=== PATIENT | female | born 1955 | race Caucasian/White ===

== ENCOUNTER 2022-01-19 13:58 | Emergency (ER) | payer MEDICARE ==
[~2022-01-19] VITALS: Ht 154.9 cm; Wt 56.7 kg
[2022-01-19 14:00] VITALS: BP 185/79
[2022-01-19] MEDS ORDERED: NACL 0.9% 1,000 ML IV SCH (14:10)
[2022-01-19] MEDS ORDERED: cefTRIAXone 1,000 MG in DEXT 5% MINI-BAG PLUS 50 ML IV ONE (14:10)
--- NOTE | 2022-01-19 14:10 | NUR ---
[facility]ARC[facility] FROM HOME D/T ALOC. PT PRESENTS WITH RECENT SX WOUNDS TO LEFT LEG. NO FEVER, BS NORMAL (SEE LAB), ON [employer], VITALS STABLE. ROOM AIR.
[2022-01-19] MEDS ORDERED: NALOXONE PFS 2 MG/2 ML SYR IVP ONE (14:30)
[2022-01-19 15:14] LABS: MEAN CORPUSCULAR HGB CONC 34 g/dL (33-37)
[2022-01-19] MEDS ORDERED: cefTRIAXone 1,000 MG VIAL ONE (15:15)
[2022-01-19 15:21] LABS: BASOPHILS % (AUTO) 0.5 % (0.0-2.0); EOSINOPHILS # (AUTO) 0.1 K/uL (0-0.4); EOSINOPHILS % (AUTO) 1.1 % (0.0-4.0); HEMATOCRIT 36.1 % (36-48); HEMOGLOBIN 12.2 g/dL (12.0-16.0); LYMPHOCYTES # (AUTO) 2.7 K/uL (2.5-16.5); LYMPHOCYTES % (AUTO) 41.9 % (20.5-51.1); MEAN CORPUSCULAR HEMOGLOBIN 32 pg (27-31); MEAN CORPUSCULAR VOLUME 94.1 fL (80-94); MONOCYTES # (AUTO) 0.3 K/uL (0.8-1.0); MONOCYTES % (AUTO) 5.2 % (1.7-9.3); NEUTROPHILS # (AUTO) 3.3 K/uL (1.8-7.7); NEUTROPHILS % (AUTO) 51.3 % (42.2-75.2); PLATELET COUNT (AUTO) 270 K/uL (140-450); RED BLOOD CELL COUNT(AUTO) 3.83 MIL/uL (4.20-5.40); RED CELL DISTRIBUTION WIDTH 13.2 % (11.6-13.7); WHITE BLOOD COUNT (AUTO) 6.5 K/uL (4.8-10.8)
[2022-01-19 15:32] LABS: BILIRUBIN,URINE NEGATIVE (NEGATIVE); BLOOD, URINE 2+ (NEGATIVE); LEUKOCYTE ESTERASE ,URINE 3+ (NEGATIVE); NITRITE, URINE NEGATIVE (NEGATIVE); UGLUCOSE 3+ (NEGATIVE)
[2022-01-19 15:38] LABS: APPEARANCE,URINE HAZY (CLEAR); COLOR,URINE STRAW (YELLOW)
[2022-01-19 15:40] LABS: ALBUMIN 3.4 g/dL (3.4-5.0); ANION GAP 11.6 (8-16); CARBON DIOXIDE 25.9 mmol/L (21-32); CREATININE 0.7 mg/dL (0.6-1.3); POTASSIUM 3.5 mmol/L (3.5-5.1); TOTAL BILIRUBIN 0.5 mg/dL (0.0-1.0)
[2022-01-19 16:13] LABS: RBC,URINE 0-5 /HPF (0-5); WBC,URINE 80-100 /HPF (0-5)
[2022-01-19 19:32] VITALS: BP 148/80
--- NOTE | 2022-01-19 19:35 | NUR ---
Patient to be transferred to [facility]. Is being transferred due to INSURANCE. Receiving facility has accepting physician and available space. ER physician has signed transfer form. Patient or responsible alliance party has agreed to transfer and signed form. Patient belongings inventoried and will be sent with patient. Copy of nursing notes, lab reports, EKG, Physicians Orders and X-rays to be sent with patient. Report called to JOSE MANUEL MAYER at receiving facility. [facility] ambulance service has been called for transfer. ETA is NOW.
== END 2022-01-19 18:43 | disposition short-term general hospital (02) ==
LOC: MED 13:58
DX: R41.82 Altered mental status, unspecified (principal); Z20.822 Contact with and (suspected) exposure to COVID-19; N39.0 Urinary tract infection, site not specified; R11.10 Vomiting, unspecified; E11.9 Type 2 diabetes mellitus without complications; I10 Essential (primary) hypertension; Z98.890 Other specified postprocedural states
CPT/HCPCS: 36415; 70450; 71045; 80053; 81001; 83605; 83880; 84484; 85025; 87040; 87086; 87426; 87804; 93005; 96365; 96366; 99285; J0696; J7030